=== PATIENT | male | born 1950 | race Caucasian/White ===

== ENCOUNTER 2021-02-27 21:14 | Inpatient (IN) | payer MEDICARE, MEDICAID ==
[2021-02-27] MEDS ORDERED: HYDROcodone/Acetaminophen 5/325 mg Tablet PO PRN (22:04)
[2021-02-27] MEDS ORDERED: Acetaminophen 325 MG TAB PO PRN (22:04)
[2021-02-27] MEDS ORDERED: Senokot S 8.6-50 MG TAB PO PRN (22:04)
[2021-02-27] MEDS ORDERED: Ondansetron PF 4 MG/2 ML Vial IVP PRN (22:04)
[2021-02-27] MEDS ORDERED: Guaifenesin DM 100-10/5 ML UDCUP PO PRN (22:04)
[2021-02-27] MEDS ORDERED: Calcium Carbonate 500 MG ChewTAB PO PRN (22:04)
[2021-02-27] MEDS ORDERED: Morphine 4 MG/ML VIAL SLOW IVP PRN (22:26)
[2021-02-27] MEDS ORDERED: Vancomycin HCl 1 GM in Sodium Chloride 0.9% 250 ML 250 ML IVPB SCH (22:30)
[2021-02-27 22:43] VITALS: BMI 23.0
[2021-02-27] MEDS: Nicotine 21 MG PATCH TD SCH (23:09)
[2021-02-27] MEDS: HYDROcodone/Acetaminophen 5/325 mg Tablet PO PRN (23:09)
[2021-02-28] MEDS: Ipratropium Bromide 2.5 ml Neb NEB SCH ×4 (01:45→19:45)
[2021-02-28] MEDS: Cefepime 1 GM in Sodium Chloride 0.9% 100 ML IVPB SCH ×2 (04:05→17:28)
[2021-02-28 05:18] LABS: #Eosinphils 0.3 10x3/uL (0.0-0.5); #Monocytes 0.6 10x3/uL (0.0-1.1); #Neutrophils 3.2 10x3/uL (1.5-8.4); %Basophils 0.8 % (0.0-2.0); %Eosinophils 5.9 % (0.0-6.0); %Lymphocytes 21.5 % (18.0-47.0); %Monocytes 10.7 % (0.0-10.0); %Neutrophils 60.5 % (40.0-75.0); Hemoglobin 10.5 g/dL (13.5-17.5); Mean Corpuscular HGB CONC 33.7 g/dL (32.0-36.0); Mean Corpuscular Hemoglobin 33.4 pg (27.0-33.0); Mean Corpuscular Volume 99.4 fl (81.2-95.1); Mean Platelet Volume 9.1 fl (7.4-10.4); Platelet Count 199 10x3/uL (150-450); RBC Distribution Width 13.1 % (11.5-14.5); Red Blood Cell (RBC) Count 3.14 10x6/uL (4.32-5.72); White Blood Cell (WBC) Count 5.2 10x3/uL (3.5-10.5)
[2021-02-28 05:34] LABS: Anion Gap 12 mmol/L (10-20); BUN (Urea Nitrogen) 28 mg/dL (8.4-25.7); Calc. Creatinine Clearance 43 mL/min (70-130); Calcium 8.9 mg/dL (7.8-10.44); Carbon Dioxide 25 mmol/L (23-31); Chloride 103 mmol/L (98-107); Glucose 87 mg/dL (83-110); Magnesium 1.8 mg/dL (1.6-2.6); Potassium 3.4 mmol/L (3.5-5.1); Sodium 137 mmol/L (136-145)
[2021-02-28] MEDS ORDERED: Mometasone 200 MCG/Formoterol 5 MCG 120 PUFF INHALER INH SCH (06:30)
[2021-02-28] MEDS ORDERED: Sodium Chloride 0.65% Nasal 44 ML BOT EA NARE PRN (07:26)
[2021-02-28] MEDS ORDERED: Zolpidem Tartrate 5 MG TAB PO PRN (07:26)
[2021-02-28] MEDS ORDERED: Bisacodyl 5 MG TAB PO PRN (07:26)
[2021-02-28] MEDS ORDERED: Benzonatate 100 MG CAP PO PRN (07:26)
[2021-02-28] MEDS ORDERED: Cepastat Lozenges 1 LOZ PO PRN (07:26)
[2021-02-28] MEDS ORDERED: Loperamide HCl 2 MG CAP PO PRN (07:26)
[2021-02-28] MEDS ORDERED: Loratadine 10 MG TAB PO PRN (07:26)
[2021-02-28] MEDS ORDERED: hydrALAZINE 20 MG/ML VIAL SLOW IVP PRN (07:26)
[2021-02-28] MEDS ORDERED: Eucerin (Mineral Oil/Petrolatum,White) 30 gm Jar TOP PRN (07:26)
[2021-02-28] MEDS ORDERED: guaiFENesin 100 MG/5 ML UDCUP PO PRN (07:59)
[2021-02-28] MEDS: HYDROcodone/Acetaminophen 5/325 mg Tablet PO PRN ×2 (08:03→18:35)
[2021-02-28] MEDS ORDERED: Aspirin 325 MG TAB PO SCH (09:00)
[2021-02-28] MEDS ORDERED: Vancomycin 1 GM in Premix Bag 1 BAG IVPB SCH (09:00)
[2021-02-28] MEDS: Ferrous Sulfate 325 MG TAB PO SCH (10:00)
[2021-02-28] MEDS: Aspirin 81 mg Enteric Coated Tablet PO SCH (10:00)
[2021-02-28] MEDS: Gabapentin 300 MG CAP PO SCH ×2 (10:00→22:03)
[2021-02-28] MEDS: Enoxaparin Sodium 40 MG/0.4 ML SYRINGE SC SCH (10:00)
[2021-02-28] MEDS: clonazePAM 0.5 MG TAB PO SCH ×2 (10:00→22:03)
[2021-02-28] MEDS: Venlafaxine HCl XR 75 MG CAP PO SCH (10:00)
[2021-02-28] MEDS: Finasteride 5 MG TAB PO SCH (10:00)
[2021-02-28] MEDS: Hydrochlorothiazide 25 MG TAB PO SCH (10:00)
[2021-02-28] MEDS ORDERED: Potassium Chloride 20 MEQ TAB PO SCH (10:30)
[2021-02-28] MEDS ORDERED: Vancomycin HCl 1 GM in Sodium Chloride 0.9% 250 ML 250 ML IVPB SCH (11:00)
[2021-02-28] MEDS: Polyethylene Glycol 3350 17 GM Packet PO SCH (14:04)
[2021-02-28 15:50] LABS: Hemoglobin A1c 5.3 % (4.0-6.0)
[2021-02-28] MEDS ORDERED: Piperacillin/Tazobactam 3.375 GM in Sodium Chloride 0.9% 100 ML IVPB SCH (17:30)
[2021-02-28] MEDS ORDERED: Potassium Chloride 20 MEQ TAB ONE (17:58)
[2021-02-28 19:16] LABS: SARS-CoV-2 PCR by NAA Not Detected (NotDetected)
[2021-02-28] MEDS: Mometasone/Formoterol 200/5 60 PUFF INH SCH (19:45)
[2021-02-28] MEDS: Piperacillin/Tazobactam 3.375 GM in Sodium Chloride 0.9% 100 ML IVPB SCH (22:03)
[2021-02-28] MEDS: Atorvastatin Calcium 20 MG TAB PO SCH (22:04)
[2021-02-28] MEDS: Nicotine 21 MG PATCH TD SCH (22:04)
[2021-02-28] MEDS: Tamsulosin HCl 0.4 MG CAP PO SCH (22:04)
[2021-03-01] MEDS: Ipratropium Bromide 2.5 ml Neb NEB SCH ×4 (01:45→19:40)
[2021-03-01] MEDS: Vancomycin HCl 1 GM in Sodium Chloride 0.9% 250 ML 250 ML IVPB SCH ×2 (01:53→22:25)
[2021-03-01] MEDS: traZODone HCl 50 MG TAB PO SCH ×2 (01:54→20:08)
[2021-03-01 04:25] LABS: #Eosinphils 0.3 10x3/uL (0.0-0.5); #Monocytes 0.6 10x3/uL (0.0-1.1); %Basophils 0.6 % (0.0-2.0); %Eosinophils 6.3 % (0.0-6.0); %Lymphocytes 21.3 % (18.0-47.0); %Monocytes 11.7 % (0.0-10.0); %Neutrophils 59.7 % (40.0-75.0); Hemoglobin 10.4 g/dL (13.5-17.5); Mean Corpuscular HGB CONC 33.4 g/dL (32.0-36.0); Mean Corpuscular Hemoglobin 32.9 pg (27.0-33.0); Mean Corpuscular Volume 98.4 fl (81.2-95.1); Mean Platelet Volume 8.9 fl (7.4-10.4); Platelet Count 186 10x3/uL (150-450); RBC Distribution Width 13.1 % (11.5-14.5); Red Blood Cell (RBC) Count 3.16 10x6/uL (4.32-5.72); White Blood Cell (WBC) Count 4.9 10x3/uL (3.5-10.5)
[2021-03-01 04:37] LABS: ALT (SGPT) 11 U/L (8-55); AST (SGOT) 15 U/L (5-34); Albumin 3.1 g/dL (3.4-4.8); Alkaline Phosphatase 116 U/L (40-110); Anion Gap 16 mmol/L (10-20); BUN (Urea Nitrogen) 24 mg/dL (8.4-25.7); Bilirubin, Total 0.6 mg/dL (0.2-1.2); CRP (Inflammatory) 1.63 mg/dL (= or < 0.5); Calc. Creatinine Clearance 41 mL/min (70-130); Calcium 8.7 mg/dL (7.8-10.44); Carbon Dioxide 24 mmol/L (23-31); Chloride 103 mmol/L (98-107); Globulin 2.7 g/dL (2.4-3.5); Glucose 94 mg/dL (83-110); Potassium 3.5 mmol/L (3.5-5.1); Protein, Total 5.8 g/dL (5.8-8.1); Sodium 139 mmol/L (136-145)
[2021-03-01] MEDS: Piperacillin/Tazobactam 3.375 GM in Sodium Chloride 0.9% 100 ML IVPB SCH ×3 (05:38→21:09)
[2021-03-01] MEDS: Mometasone/Formoterol 200/5 60 PUFF INH SCH ×2 (08:40→19:40)
[2021-03-01] MEDS: Ferrous Sulfate 325 MG TAB PO SCH (10:05)
[2021-03-01] MEDS: Hydrochlorothiazide 25 MG TAB PO SCH (10:05)
[2021-03-01] MEDS: Gabapentin 300 MG CAP PO SCH ×2 (10:05→20:07)
[2021-03-01] MEDS: Venlafaxine HCl XR 75 MG CAP PO SCH (10:06)
[2021-03-01] MEDS: Finasteride 5 MG TAB PO SCH (10:06)
[2021-03-01] MEDS: clonazePAM 0.5 MG TAB PO SCH ×2 (10:06→20:07)
[2021-03-01] MEDS: Aspirin 81 mg Enteric Coated Tablet PO SCH (10:06)
[2021-03-01] MEDS: Polyethylene Glycol 3350 17 GM Packet PO SCH (10:07)
[2021-03-01] MEDS: Enoxaparin Sodium 40 MG/0.4 ML SYRINGE SC SCH (10:07)
[2021-03-01] MEDS: HYDROcodone/Acetaminophen 5/325 mg Tablet PO PRN ×2 (10:19→23:10)
[2021-03-01] MEDS: Atorvastatin Calcium 20 MG TAB PO SCH (20:07)
[2021-03-01] MEDS: Tamsulosin HCl 0.4 MG CAP PO SCH (20:07)
[2021-03-01] MEDS: Nicotine 21 MG PATCH TD SCH (21:09)
[2021-03-01 21:55] LABS: Vancomycin, Trough 17.5 ug/mL
[2021-03-02] MEDS: Piperacillin/Tazobactam 3.375 GM in Sodium Chloride 0.9% 100 ML IVPB SCH (05:18)
[2021-03-02] MEDS: Venlafaxine HCl XR 75 MG CAP PO SCH (08:44)
[2021-03-02] MEDS: Gabapentin 300 MG CAP PO SCH ×2 (08:44→20:11)
[2021-03-02] MEDS: Finasteride 5 MG TAB PO SCH (08:45)
[2021-03-02] MEDS: Enoxaparin Sodium 40 MG/0.4 ML SYRINGE SC SCH (08:45)
[2021-03-02] MEDS: Ferrous Sulfate 325 MG TAB PO SCH (08:45)
[2021-03-02] MEDS: clonazePAM 0.5 MG TAB PO SCH ×2 (08:45→20:11)
[2021-03-02] MEDS: Aspirin 81 mg Enteric Coated Tablet PO SCH (08:45)
[2021-03-02] MEDS: Polyethylene Glycol 3350 17 GM Packet PO SCH (08:46)
[2021-03-02] MEDS: Hydrochlorothiazide 25 MG TAB PO SCH (08:46)
[2021-03-02 09:03] LABS: #Eosinphils 0.3 10x3/uL (0.0-0.5); #Monocytes 0.7 10x3/uL (0.0-1.1); #Neutrophils 3.3 10x3/uL (1.5-8.4); %Basophils 0.5 % (0.0-2.0); %Eosinophils 5.6 % (0.0-6.0); %Lymphocytes 22.3 % (18.0-47.0); %Monocytes 12.6 % (0.0-10.0); %Neutrophils 58.6 % (40.0-75.0); Hemoglobin 11.5 g/dL (13.5-17.5); Mean Corpuscular HGB CONC 33.8 g/dL (32.0-36.0); Mean Corpuscular Hemoglobin 33.1 pg (27.0-33.0); Platelet Count 209 10x3/uL (150-450); RBC Distribution Width 13.3 % (11.5-14.5); Red Blood Cell (RBC) Count 3.47 10x6/uL (4.32-5.72); White Blood Cell (WBC) Count 5.6 10x3/uL (3.5-10.5)
[2021-03-02 09:19] LABS: ALT (SGPT) 10 U/L (8-55); AST (SGOT) 14 U/L (5-34); Albumin 3.4 g/dL (3.4-4.8); Alkaline Phosphatase 113 U/L (40-110); Anion Gap 15 mmol/L (10-20); BUN (Urea Nitrogen) 20 mg/dL (8.4-25.7); Bilirubin, Total 0.6 mg/dL (0.2-1.2); Calc. Creatinine Clearance 37 mL/min (70-130); Calcium 8.8 mg/dL (7.8-10.44); Carbon Dioxide 26 mmol/L (23-31); Chloride 104 mmol/L (98-107); Globulin 2.8 g/dL (2.4-3.5); Glucose 95 mg/dL (83-110); Protein, Total 6.2 g/dL (5.8-8.1); Sodium 141 mmol/L (136-145)
[2021-03-02] MEDS: Mometasone/Formoterol 200/5 60 PUFF INH SCH ×2 (10:15→19:36)
[2021-03-02] MEDS: Ipratropium Bromide 2.5 ml Neb NEB SCH ×4 (10:15→19:36)
[2021-03-02] MEDS: HYDROcodone/Acetaminophen 5/325 mg Tablet PO PRN ×2 (13:04→20:12)
[2021-03-02] MEDS: traZODone HCl 50 MG TAB PO SCH (20:11)
[2021-03-02] MEDS: Atorvastatin Calcium 20 MG TAB PO SCH (20:11)
[2021-03-02] MEDS: Tamsulosin HCl 0.4 MG CAP PO SCH (20:11)
[2021-03-02] MEDS: Nicotine 21 MG PATCH TD SCH (21:32)
[2021-03-02] MEDS: Vancomycin HCl 1 GM in Sodium Chloride 0.9% 250 ML 250 ML IVPB SCH (23:15)
[2021-03-03] MEDS: Ipratropium Bromide 2.5 ml Neb NEB SCH ×4 (00:18→19:09)
[2021-03-03 05:59] LABS: #Eosinphils 0.3 10x3/uL (0.0-0.5); #Monocytes 0.7 10x3/uL (0.0-1.1); #Neutrophils 3.5 10x3/uL (1.5-8.4); %Basophils 0.5 % (0.0-2.0); %Eosinophils 5.5 % (0.0-6.0); %Lymphocytes 18.8 % (18.0-47.0); %Monocytes 12.7 % (0.0-10.0); Hemoglobin 9.9 g/dL (13.5-17.5); Mean Corpuscular HGB CONC 33.6 g/dL (32.0-36.0); Mean Corpuscular Hemoglobin 33.2 pg (27.0-33.0); Mean Platelet Volume 9.4 fl (7.4-10.4); Platelet Count 207 10x3/uL (150-450); RBC Distribution Width 13.3 % (11.5-14.5); Red Blood Cell (RBC) Count 2.98 10x6/uL (4.32-5.72); White Blood Cell (WBC) Count 5.6 10x3/uL (3.5-10.5)
[2021-03-03 06:19] LABS: ALT (SGPT) 15 U/L (8-55); AST (SGOT) 23 U/L (5-34); Albumin 3.1 g/dL (3.4-4.8); Alkaline Phosphatase 101 U/L (40-110); Anion Gap 14 mmol/L (10-20); BUN (Urea Nitrogen) 21 mg/dL (8.4-25.7); Bilirubin, Total 0.4 mg/dL (0.2-1.2); Calc. Creatinine Clearance 41 mL/min (70-130); Calcium 8.7 mg/dL (7.8-10.44); Carbon Dioxide 26 mmol/L (23-31); Chloride 104 mmol/L (98-107); Globulin 2.5 g/dL (2.4-3.5); Glucose 95 mg/dL (83-110); Potassium 3.7 mmol/L (3.5-5.1); Protein, Total 5.6 g/dL (5.8-8.1); Sodium 140 mmol/L (136-145)
[2021-03-03] MEDS: Mometasone/Formoterol 200/5 60 PUFF INH SCH ×2 (07:22→19:09)
[2021-03-03] MEDS: Hydrochlorothiazide 25 MG TAB PO SCH (08:11)
[2021-03-03] MEDS: Gabapentin 300 MG CAP PO SCH ×2 (08:11→20:23)
[2021-03-03] MEDS: clonazePAM 0.5 MG TAB PO SCH ×2 (08:12→20:22)
[2021-03-03] MEDS: Ferrous Sulfate 325 MG TAB PO SCH (08:12)
[2021-03-03] MEDS: Finasteride 5 MG TAB PO SCH (08:12)
[2021-03-03] MEDS: Venlafaxine HCl XR 75 MG CAP PO SCH (08:12)
[2021-03-03] MEDS: HYDROcodone/Acetaminophen 5/325 mg Tablet PO PRN ×2 (08:13→19:04)
[2021-03-03] MEDS: Aspirin 81 mg Enteric Coated Tablet PO SCH (08:13)
[2021-03-03] MEDS: Polyethylene Glycol 3350 17 GM Packet PO SCH (08:15)
[2021-03-03] MEDS: Enoxaparin Sodium 40 MG/0.4 ML SYRINGE SC SCH (08:15)
[2021-03-03] MEDS: Metoprolol Tartrate 25 MG TAB PO SCH ×2 (11:16→20:23)
[2021-03-03] MEDS: Atorvastatin Calcium 20 MG TAB PO SCH (20:23)
[2021-03-03] MEDS: Tamsulosin HCl 0.4 MG CAP PO SCH (20:24)
[2021-03-03] MEDS: traZODone HCl 50 MG TAB PO SCH (20:24)
[2021-03-03] MEDS: Nicotine 21 MG PATCH TD SCH (21:04)
[2021-03-03] MEDS: Vancomycin HCl 1 GM in Sodium Chloride 0.9% 250 ML 250 ML IVPB SCH (22:06)
[2021-03-03 22:22] LABS: Vancomycin, Trough 27.4 ug/mL
[2021-03-03] MEDS ORDERED: Vancomycin HCl 1 GM in Premix Bag 1 BAG IVPB SCH (23:45)
[2021-03-04] MEDS: Ipratropium Bromide 2.5 ml Neb NEB SCH ×3 (01:00→13:40)
[2021-03-04] MEDS: HYDROcodone/Acetaminophen 5/325 mg Tablet PO PRN (06:32)
[2021-03-04] MEDS: Mometasone/Formoterol 200/5 60 PUFF INH SCH (07:32)
[2021-03-04] MEDS: Polyethylene Glycol 3350 17 GM Packet PO SCH (08:38)
[2021-03-04] MEDS: Enoxaparin Sodium 40 MG/0.4 ML SYRINGE SC SCH (08:38)
[2021-03-04] MEDS: Aspirin 81 mg Enteric Coated Tablet PO SCH (08:39)
[2021-03-04] MEDS: Venlafaxine HCl XR 75 MG CAP PO SCH (08:39)
[2021-03-04] MEDS: Ferrous Sulfate 325 MG TAB PO SCH (08:39)
[2021-03-04] MEDS: Gabapentin 300 MG CAP PO SCH (08:39)
[2021-03-04] MEDS: Finasteride 5 MG TAB PO SCH (08:39)
[2021-03-04] MEDS: clonazePAM 0.5 MG TAB PO SCH (08:39)
[2021-03-04] MEDS ORDERED: Metoprolol Tartrate 50 MG TAB PO SCH (09:00)
[2021-03-04 12:13] VITALS: BP 124/66; TEMP 97
== END 2021-03-04 14:31 | disposition home or self-care (01) | DRG 603 ==
LOC: CSHTELE 21:14 → OBSVTOIN 22:04
PROVIDERS: ADMIT Student in an Organized Health Care Education/Training Program; ATTEND Internal Medicine
DX: L03.115 Cellulitis of right lower limb (principal); I69.951 Hemiplegia and hemiparesis following unspecified cerebrovascular disease affecting right dominant side; L97.919 Non-pressure chronic ulcer of unspecified part of right lower leg with unspecified severity; F33.9 Major depressive disorder, recurrent, unspecified; Z20.822 Contact with and (suspected) exposure to COVID-19; I25.10 Atherosclerotic heart disease of native coronary artery without angina pectoris; N40.0 Benign prostatic hyperplasia without lower urinary tract symptoms; E87.6 Hypokalemia; E78.5 Hyperlipidemia, unspecified; J44.9 Chronic obstructive pulmonary disease, unspecified; F17.210 Nicotine dependence, cigarettes, uncomplicated; I12.9 Hypertensive chronic kidney disease with stage 1 through stage 4 chronic kidney disease, or unspecified chronic kidney disease; N18.31 Chronic kidney disease, stage 3a; B95.2 Enterococcus as the cause of diseases classified elsewhere; I70.209 Unspecified atherosclerosis of native arteries of extremities, unspecified extremity; F41.9 Anxiety disorder, unspecified; N35.919 Unspecified urethral stricture, male, unspecified site; Z71.6 Tobacco abuse counseling; Z87.898 Personal history of other specified conditions; Z86.14 Personal history of Methicillin resistant Staphylococcus aureus infection; Z99.3 Dependence on wheelchair; Z97.8 Presence of other specified devices; Z79.82 Long term (current) use of aspirin; Z79.891 Long term (current) use of opiate analgesic; Z79.899 Other long term (current) drug therapy
CPT/HCPCS: 36415; 80048; 80053; 80202; 83036; 83735; 85025; 86140; 87635; 93923; 94640; 94760; J0692; J1650; J2543; J3370; J3490; J7050; J7620; U0003; U0005